=== PATIENT | male | born 1995 | race African-American/Black ===

== ENCOUNTER 2018-01-02 11:44 | Emergency (ER) | payer OTHER ==
[2018-01-02] MEDS: KETOROLAC 60 MG INJ IM ×2 (14:50→14:52)
== END 2018-01-02 15:24 | disposition home or self-care (01) ==
LOC: FTE 11:44
DX: S49.92XA Unspecified injury of left shoulder and upper arm, initial encounter (principal); X58.XXXA Exposure to other specified factors, initial encounter; Y92.89 Other specified places as the place of occurrence of the external cause
CPT/HCPCS: 73030; 96372; 99284-25